=== PATIENT | female | born 1965 | race Caucasian/White ===

== ENCOUNTER → 2018-06-23 | Outpatient (CLI) | payer OTHER | LOC: M RAD 14:29 | DX: Z12.31 Encounter for screening mammogram for malignant neoplasm of breast (principal); Z78.0 Asymptomatic menopausal state | CPT/HCPCS: 77067 ==

== ENCOUNTER → 2020-12-14 | Outpatient (REF) | payer OTHER | LOC: M SFHCWAGY 13:20 | PROVIDERS: ATTEND Obstetrics & Gynecology | DX: Z12.4 Encounter for screening for malignant neoplasm of cervix (principal) ==

== ENCOUNTER → 2021-02-01 | Outpatient (CLI) | payer OTHER ==
--- NOTE | 2021-02-01 12:11 | REPMRS ---
Patient History The patient states she had a clinical breast exam in November 2020. No known family history of cancer. Patient states no breast complaints today. Patient has signed MRS History Sheet. Digital Woman Screen Mammo: February 01, 2021 - Exam #: [id number] Bilateral CC and MLO view(s) were taken. Technologist: Laura Youssef, Technologist Prior study comparison: June 23, 2018, bilateral digital mammo screening bilat, performed at [facility]. 2013, bilateral digital mammo screening bilat, performed at [facility]. November 12, 2011, bilateral digital mammo screening bilat, performed at [facility]. FINDINGS: The breast tissue is heterogeneously dense. This may lower the sensitivity of mammography. The Volpara volumetric breast density category is: C. There is a moderate amount of heterogeneously dense fibroglandular tissue which is fairly symmetric. There is no interval development of dominant mass, architectural distortion, or grouped microcalcification typical of malignancy. There has been no change in the appearance of the mammogram from the prior studies. 3-D tomosynthesis shows no additional findings. Assessment: BI-RADS/ACR category 1 mammogram. Negative Mammogram. Recommendation Routine screening mammogram of both breasts in 1 year (for women over age 40). This patient's [facility] Lifetime Breast Cancer RIsk is estimated at 9.0 %. This mammogram was interpreted with the aid of an FDA-approved computer-aided dectection system. Electronically Signed By: Addy Wdae MD 02/01/21 1058
== END ==
LOC: M WHC 11:14
PROVIDERS: ATTEND Obstetrics & Gynecology
DX: Z12.31 Encounter for screening mammogram for malignant neoplasm of breast (principal)

== ENCOUNTER → 2021-04-02 | Outpatient (CLI) | payer OTHER ==
--- NOTE | 2021-04-02 15:05 | PFTRPT ---
Height: 64.00 Inches Weight: 140.00 Lbs BSA: 1.68 Diagnosis: R06.00 DATE: 04/02/2021 ORDERING PHYSICIAN: SARAH Adams Pre and post bronchodilator studies have excellent technical quality. Forced vital capacity is normal. FEV1 is in proportion. Obstructive index is therefore normal. Expiratory limit of the flow-volume loop is normal. No significant bronchodilator response is identified. Total lung capacity is normal. Residual volume generally in proportion. Diffusing capacity although mildly reduced is appropriate for alveolar volume but hemoglobin is reduced at 10.6. Airway resistance and conductance are normal. IMPRESSION: Diffusing capacity is reduced mainly on the basis of anemia. Please correlate clinically. MTDD
== END ==
LOC: M CARPUL 13:55
PROVIDERS: ATTEND Physician Assistant
DX: R06.00 Dyspnea, unspecified (principal)

== ENCOUNTER → 2021-04-18 | Outpatient (CLI) | payer OTHER ==
[~2021-04-18] MED LIST: METHACHOLINE KIT (J7674) INH ONE; UNRESOLVED CLARIFICATION ENTRY XX SCH
--- NOTE | 2021-04-18 09:51 | PFTRPT ---
Site: [facility], [address] [place], [address] ID: [id number] Name: MOISE LLAMAS Visit Date: 04/18/2021 Second ID: [id number] Referring Doctor: MILTON Lund, Alexia Damian Reviewing Doctor: Soren Mcdonald MD Metals Analyst: Gonzales SAVAGE RRT Age: 55 : 1965 Sex: Female Race: Height: 64.00 Inches Weight: 142.00 Lbs BSA: 1.69 Order IDs: [id number] Requested Test(s): <RESP-PFT.METH CHAL> Diagnosis: R06.00 of albuterol for post bronchodilator. Review Status: Not Reviewed Pre-Bronch Post-Bronch Pred Actual %Pred Actual %Chng SPIROMETRY FVC (L) 3.39 3.20 94 3.07 -4 FEV1 (L) 2.64 2.48 93 2.35 -5 FEV1/FVC (%) 79 78 98 77 -1 FEF 25% (L/sec) 5.06 4.55 89 4.62 1 FEF 50% (L/sec) 3.73 2.81 75 2.27 -19 FEF 75% (L/sec) 1.29 0.84 64 0.58 -29 FEF 25-75% (L/sec) 2.49 2.21 88 1.74 -21 FEF Max (L/sec) 6.46 4.55 70 4.66 2 FIVC (L) 3.10 2.99 -3 FIF 50% (L/sec) 3.46 2.60 75 3.65 40 FIF Max (L/sec) 2.69 3.89 44 Expiratory Time (sec) 6.80 6.07 -10 Back Extrap Vol (L) 0.09 0.20 112 Time To FEFmax (sec) 0.145 0.161 10
== END ==
LOC: M CARPUL 08:49
PROVIDERS: ATTEND Physician Assistant
DX: R06.00 Dyspnea, unspecified (principal)

== ENCOUNTER 2021-08-30 11:36 | Emergency (ER) | payer OTHER ==
[~2021-08-30] VITALS: Ht 162.6 cm; Wt 63.6 kg
[2021-08-30] MEDS ORDERED: GILE1CAP (11:48)
[2021-08-30] MEDS ORDERED: BREO1INH3 (11:48)
--- NOTE | 2021-08-30 12:49 | REP ---
INDICATION: COVID +, chest pressure COMPARISON: None. TECHNIQUE: PA and lateral. FINDINGS: The mediastinum and cardiac silhouette are normal. The lung yeager are clear and without acute consolidation, effusion, or pneumothorax. The skeletal structures are intact and normal. IMPRESSION: No acute cardiopulmonary process. <Electronically signed by Chay Mckeon > 08/30/21 [id number]
[2021-08-30 13:13] LABS: BASO % 0.3 % (0.0-1.0); EOS % 0.4 % (0.0-3.0); HEMOGLOBIN 12.3 g/dl (12.0-15.5); LYMPH # 0.2 10^3/uL (1.5-5.0); LYMPH % 2.3 % (24.0-44.0); MEAN CORPUSCULAR HEMOGLOBIN 20.2 pg (27.0-33.0); MEAN CORPUSCULAR HGB CONC 30.8 g/dl (32.0-36.5); MEAN CORPUSCULAR VOLUME 65.8 fl (80.0-96.0); MONO # 0.7 10^3/uL (0.0-0.8); MONO % 6.9 % (2.0-8.0); NEUTROPHILS # 8.4 10^3/uL (1.5-8.5); NEUTROPHILS % 89.4 % (36.0-66.0); PLATELET COUNT, AUTOMATED 227 10^3/uL (150-450); RED BLOOD COUNT 6.08 10^6/uL (4.00-5.40); WHITE BLOOD COUNT 9.4 10^3/uL (4.0-10.0)
[2021-08-30] MEDS ORDERED: EXCEDRIN MIGRAINE TABLET PO STA (13:16)
[2021-08-30 13:27] LABS: ALT/SGPT 49 U/L (12-78); BILIRUBIN,DIRECT 0.1 MG/DL (0.0-0.2); BILIRUBIN,TOTAL 0.7 MG/DL (0.2-1.0); BLOOD UREA NITROGEN 14 MG/DL (7-18); CALCIUM LEVEL 9.4 MG/DL (8.5-10.1); CARBON DIOXIDE LEVEL 34 MEQ/L (21-32); CHLORIDE LEVEL 107 MEQ/L (98-107); CREATININE FOR GFR 0.82 MG/DL (0.55-1.30); GLOMERULAR FILTRATION RATE > 60.0 (>51); GLUCOSE, FASTING 106 MG/DL (70-100); POTASSIUM SERUM 3.9 MEQ/L (3.5-5.1); SODIUM LEVEL 145 MEQ/L (136-145); TOTAL PROTEIN 6.8 GM/DL (6.4-8.2)
[2021-08-30 15:03] VITALS: BP 146/86
--- NOTE | 2021-08-30 20:25 | ECGEPIP ---
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
== END 2021-08-30 15:19 | disposition home or self-care (01) ==
LOC: M ED 11:36
DX: U07.1 COVID-19 (principal); G35 Multiple sclerosis; J45.909 Unspecified asthma, uncomplicated; D56.9 Thalassemia, unspecified; Z79.899 Other long term (current) drug therapy

== ENCOUNTER 2021-09-02 11:12 | Outpatient (CLI) | payer OTHER ==
[~2021-09-02] VITALS: Ht 162.6 cm; Wt 63.7 kg
[~2021-09-02 11:12] MED LIST changes: +ACETAMINOPHEN TAB 650MG DOSE (2X325MG) PO PRN; +ALBUTEROL 90 MCG/ACT 8GM HFA INHALER INH PRN; +ALBUTEROL SULFATE 2.5 MG/0.5 ML INH NEB SOLN INH PRN; +BREO1INH3; +CASIRIVIMAB/IMDEVIMAB 1,200 MG in NS 250 ML IV ONE; +EPINEPHrine INJ 1 MG/ML 1ML AMP IM PRN; +GILE1CAP; -METHACHOLINE KIT (J7674) INH ONE; +NS 1,000 ML IV SCH; -UNRESOLVED CLARIFICATION ENTRY XX SCH; +diphenhydrAMINE 50MG/ML VIAL (J1200) IV PRN; +methylPREDNISolone 125MG 2ML VIAL IV PRN
[2021-09-02 11:52] VITALS: BP 144/67
[2021-09-02 12:22] VITALS: BP 129/89
[2021-09-02 12:52] VITALS: BP 136/67
[2021-09-02 13:52] VITALS: BP 117/70
== END 2021-09-02 13:52 | disposition home or self-care (01) ==
LOC: M OPCLI4 11:12
PROVIDERS: ATTEND Family Medicine
DX: U07.1 COVID-19 (principal)

== ENCOUNTER → 2022-09-25 | Outpatient (REF) | payer OTHER ==
[~2022-09-25] MED LIST changes: -ACETAMINOPHEN TAB 650MG DOSE (2X325MG) PO PRN; -ALBUTEROL 90 MCG/ACT 8GM HFA INHALER INH PRN; -ALBUTEROL SULFATE 2.5 MG/0.5 ML INH NEB SOLN INH PRN; -CASIRIVIMAB/IMDEVIMAB 1,200 MG in NS 250 ML IV ONE; -EPINEPHrine INJ 1 MG/ML 1ML AMP IM PRN; -NS 1,000 ML IV SCH; -diphenhydrAMINE 50MG/ML VIAL (J1200) IV PRN; -methylPREDNISolone 125MG 2ML VIAL IV PRN
== END ==
LOC: M PLALAB 11:23
PROVIDERS: ATTEND Obstetrics & Gynecology
DX: Z12.4 Encounter for screening for malignant neoplasm of cervix (principal); N95.2 Postmenopausal atrophic vaginitis
CPT/HCPCS: 87624; G0123

== ENCOUNTER → 2022-10-07 | Outpatient (CLI) | payer OTHER | LOC: M WHC 15:49 | PROVIDERS: ATTEND Obstetrics & Gynecology | DX: Z12.31 Encounter for screening mammogram for malignant neoplasm of breast (principal) ==

== ENCOUNTER → 2024-05-19 | Outpatient (REF) | payer OTHER | LOC: M SFHCDERM 17:50 | PROVIDERS: ATTEND Physician Assistant | DX: D23.72 Other benign neoplasm of skin of left lower limb, including hip (principal) ==

== ENCOUNTER → 2024-08-01 | Outpatient (REF) | payer OTHER ==
[2024-08-03 15:52] LABS: HPV APTIMA Not Detected (Not Detected)
== END ==
LOC: M SFHCWAGY 10:20
PROVIDERS: ATTEND Obstetrics & Gynecology
DX: Z01.419 Encounter for gynecological examination (general) (routine) without abnormal findings (principal); Z77.9 Other contact with and (suspected) exposures hazardous to health
CPT/HCPCS: 87624; G0123

== ENCOUNTER → 2024-08-01 | Outpatient (CLI) | payer OTHER | LOC: M WHC 07:46 | PROVIDERS: ATTEND Obstetrics & Gynecology | DX: Z12.31 Encounter for screening mammogram for malignant neoplasm of breast (principal); R92.333 Mammographic heterogeneous density, bilateral breasts ==

== ENCOUNTER → 2024-10-18 | Outpatient (CLI) | payer OTHER | LOC: M RAD 14:24 | PROVIDERS: ATTEND Family Medicine | DX: N28.1 Cyst of kidney, acquired (principal) ==

== ENCOUNTER → 2025-05-09 | Outpatient (CLI) | payer OTHER | LOC: M PLAIMG 13:59 | PROVIDERS: ATTEND Physician Assistant | DX: R91.8 Other nonspecific abnormal finding of lung field (principal); M47.814 Spondylosis without myelopathy or radiculopathy, thoracic region; M41.9 Scoliosis, unspecified ==

== ENCOUNTER → 2025-08-16 | Outpatient (REF) | payer OTHER | LOC: M LAB REF 17:38 | PROVIDERS: ATTEND Internal Medicine Pulmonary Disease | DX: R05.9 Cough, unspecified (principal) ==